=== PATIENT | female | born 1955 | race Caucasian/White ===

== ENCOUNTER 2017-03-16 13:54 | Observation (INO) ==
[2017-03-16] MEDS ORDERED: Ketorolac 15 MG/ML VIAL IVP PRN (15:21)
[2017-03-16] MEDS ORDERED: *HR* HYDROcodone/Acet 5/325 mg TABLET PO PRN (15:21)
[2017-03-16] MEDS ORDERED: Naloxone 0.4 MG/ML INJ IVP PRN (15:21)
[2017-03-16] MEDS ORDERED: *HR* Promethazine 25 MG/ML VIAL IVP PRN (15:21)
[2017-03-16] MEDS ORDERED: Ondansetron 4 MG/2 ML VIAL IVP PRN (15:21)
[2017-03-16] MEDS ORDERED: *HR* OxyCODONE Immed Rel 5 MG TABLET PO PRN (15:21)
[2017-03-16] MEDS ORDERED: Ipratropium/Albuterol Neb 3 ML IH PRN (15:25)
[2017-03-16] MEDS ORDERED: 0.9 % Sodium Chloride 1,000 ML IVC SCH (15:30)
[2017-03-16 16:22] LABS: Basophils # 0.1 K/mcL (0.0-0.2); Basophils % 0.5 %; Eosinophils # 0.2 K/mcL (0.0-0.6); Eosinophils % 1.9 %; Hematocrit 43.2 % (35.3-44.9); Hemoglobin 14.4 g/dL (11.5-15.4); Immature Granulocytes % 0.3 % (0-4); Lymphocytes # 2.3 K/mcL (0.6-4.6); Lymphocytes % 24.4 %; Mean Corpuscular HGB Conc 33.3 g/dL (31.6-35.5); Mean Corpuscular Hemoglobin 28.5 pg (28.0-33.3); Mean Corpuscular Volume 85.5 fL (83.0-100.0); Mean Platelet Volume 10.5 fL (9.4-12.4); Monocytes # 0.7 K/mcL (0.0-1.3); Monocytes % 7.7 %; Platelet Count 229 K/mcL (140-400); Red Blood Count 5.05 M/mcL (3.82-4.97); Red Cell Distribution Width 13.1 % (11.5-14.5); Segmented Neutrophils % 65.2 %
--- NOTE | 2017-03-16 16:38 | Urology History & Physical ---
Date of Encounter: 03/16/17 Time of Encounter: 16:36 Assessment and Plan (1) Ureteral stone with hydronephrosis Current Visit: No Status: Acute based in significant pain and inability to manage at home. as discussed in the office will proceed with a ureteroscopic stone extraction tomorrow. procedure was discussed. pt understands that it is not always possible to reach the stone. in this case, would place a stent and pt would require 2nd surgery. risk for injury to the urinary tract, perforation, stricture all discussed. History of Present Illness Chief complaint: flank pain HPI: Ms. Strauss is a 61 year old female recent ER visit for a ureteral stone. required admission bc of pain. no fever. CT scan = Left hydronephrosis with 2 obstructing proximal left ureteral stones, larger 5 mm. Past Med Surg Social Fam HX - Past Medical History Medical history: asthma, diabetes, GERD, hyperlipidemia, hypertension, kidney stones Psychiatric history: anxiety, depression - Past Surgical History Surgical History: cholecystectomy, hysterectomy, thyroidectomy, other - Social History Smoking Status: Never smoker Smokeless Tobacco Status: No Alcohol use: none Drug use: none - Family History Father Hx Family Cardiac Disorders: Yes Hx Family Endocrine Disorder: Yes Mother Hx Family Endocrine Disorder: Yes Medications and Allergies Albuterol Sulfate [Proair Hfa] 2 puff IH Q4H PRN 05/29/15 [History] Escitalopram [Lexapro] 20 mg PO HS 05/29/15 [History] Metoprolol Succinate 100 mg PO HS 05/29/15 [History] Omeprazole [PriLOSEC] 20 mg PO DAILY 05/29/15 [History] Ipratropium/Albuterol Neb [Duoneb] 3 ml IH Q6HR PRN 04/06/16 [History] Montelukast [Singulair] 10 mg PO HS 04/06/16 [History] Lansoprazole [Prevacid] 30 mg PO DAILY 01/20/17 [History] HYDROcodone/Acet 5/325 mg [[place] 5-325 mg] 1 tab PO Q4H PRN #30 tab 01/21/17 [Rx ] Ondansetron ODT [Zofran ODT] 4 mg SL Q6HR #10 tab.rapdis 01/21/17 [Rx] Ondansetron ODT [Zofran ODT] 4 mg SL Q8HR PRN #12 tab.rapdis 03/14/17 [Rx] OxyCODONE/APAP 5/325 [Percocet 5/325 MG] 1 each PO Q6HR PRN #16 tablet 03/14/17 [Rx] 3 Allergy/AdvReac Type Severity Reaction Status Date / Time No Known Allergies Allergy Verified 03/13/17 23:53 Review of Systems - Constitutional no chills, no fever(s) - EENT Nose, mouth and throat: no dizziness - Cardiovascular as per HPI, no chest pain - Respiratory no cough - Gastrointestinal abdominal pain, nausea - Genitourinary Genitourinary: flank pain - Musculoskeletal back pain - Integumentary no erythema - Neurological no confusion - Psychiatric as per HPI, no anxiety - Hematologic/Lymphatic no easy bleeding Exam Initial Vital Signs Temp Pulse Resp BP Pulse Ox 97.7 F 67 15 117/78 94 03/16/17 15:18 03/16/17 15:18 03/16/17 15:18 03/16/17 15:18 03/16/17 15:18 - General physical appearance Present: well developed, no distress, moderate pain - Eyes Present: PERRL, conjunctiva is clear - ENT Present: normal nares - Neck Present: no masses - Respiratory Present: normal respiratory effort - Abdomen Abdomen: Present: soft, suprapubic tenderness. Absent: masses - Integumentary Present: no rash - Neurologic Present: normal coordination. Absent: disoriented, confused - Additional Findings +left CVA tenderness Urology Results - Labs 03/16/17 16:08 Abnormal lab results RBC 5.05 M/mcL (3.82-4.97) H 03/16/17 16:08 All other labs normal.
[2017-03-16 16:50] LABS: BUN/Creatinine Ratio 26 (6-26); Blood Urea Nitrogen 21 mg/dL (8-23); Calcium 8.5 mg/dL (8.6-10.3); Carbon Dioxide 28 mEq/L (23-29); Chloride 104 mEq/L (98-107); Glucose 121 mg/dL (70-105); Osmolality,Calculated 294 (280-300); Potassium 3.6 mEq/L (3.5-5.1); Sodium 140 mEq/L (136-145); eGFR For African Americans > 60 (> 60); eGFR For Non-African Americans > 60 (> 60)
--- NOTE | 2017-03-16 19:27 | Anesthesia Evaluation PreOp ---
Date of Encounter: 03/16/17 Time of Encounter: 20:42 - Past History Planned Operation: Left Ureteroscopic stone extraction Cardiac History: HTN, Hyperlipidemia Pulmonary History: Asthma (seasonal), KAMARI Dx (CPAP 9, does not use) GEAR STRAIGHTENER History: Other (A/D) Other Medical History: Other (Morbid Obesity) Anesthesia History: Past Anesthesia (Thyroidectomy), Problems (PONV - Scopolomine effective in prior surgeries) : No Alcohol Use: none Drug use: none Medications and Allergies Albuterol Sulfate [Proair Hfa] 2 puff IH Q4H PRN 05/29/15 [History] Escitalopram [Lexapro] 20 mg PO HS 05/29/15 [History] Metoprolol Succinate 100 mg PO HS 05/29/15 [History] Omeprazole [PriLOSEC] 20 mg PO DAILY 05/29/15 [History] Ipratropium/Albuterol Neb [Duoneb] 3 ml IH Q6HR PRN 04/06/16 [History] Montelukast [Singulair] 10 mg PO HS 04/06/16 [History] Lansoprazole [Prevacid] 30 mg PO DAILY 01/20/17 [History] HYDROcodone/Acet 5/325 mg [[place] 5-325 mg] 1 tab PO Q4H PRN #30 tab 01/21/17 [Rx ] Ondansetron ODT [Zofran ODT] 4 mg SL Q6HR #10 tab.rapdis 01/21/17 [Rx] Ondansetron ODT [Zofran ODT] 4 mg SL Q8HR PRN #12 tab.rapdis 03/14/17 [Rx] OxyCODONE/APAP 5/325 [Percocet 5/325 MG] 1 each PO Q6HR PRN #16 tablet 03/14/17 [Rx] 3 Allergy/AdvReac Type Severity Reaction Status Date / Time No Known Allergies Allergy Verified 03/13/17 23:53 - Meds/Allergy Pre-op Review Medications Reviewed: Yes Allergies Reviewed: Yes Beta Blockers on Current Med List: Yes Anesthesia Results - Labs 03/16/17 16:08 03/16/17 16:08 - Imaging EKG: report reviewed (SINUS RHYTHM POSSIBLE INFERIOR MYOCARDIAL INFARCTION, PROBABLY OLD) Anesthesia Exam Vital Signs/O2 Sat, Most Current Temp Pulse Resp BP Pulse Ox 97.7 F 67 15 117/78 94 03/16/17 15:18 03/16/17 15:18 03/16/17 15:18 03/16/17 15:18 03/16/17 15:18 Pain Scale: 0 Pain Scale Used: Numeric (1 - 10) - HEENT Pupil (Motor): Pupils equal, EOMI Mallampati: II Teeth: Normal Oral Opening: Greater than 3 - GEAR STRAIGHTENER LOC: Oriented GEAR STRAIGHTENER Motor: Normal RUE, Normal LUE, Normal RLE, Normal LLE, Normal Face GEAR STRAIGHTENER Sensory: Normal: RUE, LUE, RLE, LLE, Face - Cardiac Rhythm: Regular Murmur: None JVD: No Carotid Bruit: No - Pulmonary Breath Sounds: bilateral Clear Respiratory Effort: Symmetrical Anesthesia Assess/Plan ASA Score: 3 Modified Rob Scale for Level of Consciousness: Cooperative, oriented, and tranquil Anesthetic Plan: General Autologous Blood: Yes Monitoring Plan: Standard Monitors Recovery Plan: PACU
[2017-03-16] MEDS ORDERED: Metoprolol XL (24 HR) Succ 50 MG TAB.ER.24H PO SCH (21:00)
--- NOTE | 2017-03-17 08:09 | Urology Progress Note ---
Date of Encounter: 03/17/17 Time of Encounter: 07:59 - Assessment and Plan (1) Ureteral stone with hydronephrosis Current Visit: No Status: Acute Assessment and plan: plan to proceed with stone extraction today. Progress Note Narrative: still having pain but not severe. has not passed stone Objective Initial Vital Signs Temp Pulse Resp BP Pulse Ox 97.7 F 67 15 117/78 94 03/16/17 15:18 03/16/17 15:18 03/16/17 15:18 03/16/17 15:18 03/16/17 15:18 - General physical appearance Present: no distress - Labs 03/16/17 16:08 03/16/17 16:08 Diabetes panel 03/16/17 Range/Units 16:08 Sodium 140 (136-145) mEq/L Potassium 3.6 (3.5-5.1) mEq/L Chloride 104 (98-107) mEq/L Carbon Dioxide 28 (23-29) mEq/L BUN 21 (8-23) mg/dL Creatinine 0.82 (0.60-1.20) mg/dL Glucose 121 H (70-105) mg/dL Calcium 8.5 L (8.6-10.3) mg/dL Calcium panel 03/16/17 Range/Units 16:08 Calcium 8.5 L (8.6-10.3) mg/dL Pituitary panel 03/16/17 Range/Units 16:08 Sodium 140 (136-145) mEq/L Potassium 3.6 (3.5-5.1) mEq/L Chloride 104 (98-107) mEq/L Carbon Dioxide 28 (23-29) mEq/L BUN 21 (8-23) mg/dL Creatinine 0.82 (0.60-1.20) mg/dL Glucose 121 H (70-105) mg/dL Calcium 8.5 L (8.6-10.3) mg/dL Adrenal panel 03/16/17 Range/Units 16:08 Sodium 140 (136-145) mEq/L Potassium 3.6 (3.5-5.1) mEq/L Chloride 104 (98-107) mEq/L Carbon Dioxide 28 (23-29) mEq/L BUN 21 (8-23) mg/dL Creatinine 0.82 (0.60-1.20) mg/dL Glucose 121 H (70-105) mg/dL Calcium 8.5 L (8.6-10.3) mg/dL Consult Discharge Plan - Plan Referrals: Osman Sheets DO [Primary Care Provider] - Javier Ernst MD [Partnered Physician] -
[2017-03-17] MEDS ORDERED: cefTRIAXone 1,000 MG in Water for inj. (sterile) 20 ML 10 ML IVP SCH (09:00)
[2017-03-17] MEDS ORDERED: *HR* FentaNYL (PF) 100 MCG/2 ML VIAL ONE (12:09)
[2017-03-17] MEDS ORDERED: Dexamethasone 4 MG/ML VIAL ONE (12:09)
[2017-03-17] MEDS ORDERED: Lidocaine -MPF 2% 2 ML VIAL ONE ×2 (12:09)
[2017-03-17] MEDS ORDERED: Ondansetron 4 MG/2 ML VIAL ONE (12:09)
[2017-03-17] MEDS ORDERED: *HR* Propofol 200 MG/20 ML VIAL IVP ONE (12:09)
[2017-03-17] MEDS ORDERED: *HR* Midazolam HCl 2 MG/2 ML VIAL ONE (12:14)
[2017-03-17] MEDS ORDERED: Scopolamine Patch 1.5 MG PATCH.TD72 ONE (12:38)
--- NOTE | 2017-03-17 12:40 | Operative Note ---
Date of procedure: 03/17/17 Pre-op diagnosis: left ureteral stone. Post-op diagnosis: same Procedure: left ureteroscopic stone extraction with holmium laser left retrograde pyelogram left JJ stent. Anesthesia: GETA Surgeon: Javier Ernst Was there an wet process assistant head miller present: No Estimated blood loss (cc): 0 Specimen: stone Condition: stable Disposition: PACU Procedure in Detail: PROCEDURE IN DETAIL: Patient was taken back to the operating room, positioned supine on the operating table. Anesthesia was applied without complication. They were moved into dorsal lithotomy. Careful attention was maintained to cushion all pressure points for patient's safety. They were prepped and draped in sterile fashion. Time-out was performed with the proper patient and procedure. A 21-[place] rigid cystoscope was inserted into the bladder without difficulty. Systematic examination of bladder revealed no abnormalities. The ureteral orifice was cannulated using a 5-[place] ureteral Catheter and a retrograde pyelogram was performed using Isovue. A filling defect was identified which corresponded to the stone. At that point, a zip wire was placed through the 5-[place]an and confirmed in the renal pelvis with fluoroscopy. An 8-10 dilator was then placed over the zip wire to passively dilate the ureteral orifice. A flexible ureteroscope was carefully inserted into the bladder and guided into the ureteral oriface. At that point, the stone was encountered in the mid ureter and I felt that it required fragmentation for safe extraction. A 200 micron holmium laser fiber on a setting of 8 and 800 was used to fragment the stone into multiple pieces. The fragments were individually basketed out of the ureter with a 1.9 tipless basket. All stone in the ureter was removed. I was then able to pass the stone up to the kidney. the 7 mm renal stone was encountered in the mid ureter. it was fragmented into multiple pieces which were all basketed out without complication. A 4.8 x 26 ureteral stent was placed over the zip wire under fluoroscopy without complication. The bladder was drained along with the stone fragments. They were collected and sent for stone analysis. No string was left attached to the stent
--- NOTE | 2017-03-17 12:43 | Discharge Summary ---
Date of Encounter: 03/17/17 Time of Encounter: 12:41 - Discharge Diagnosis (1) Ureteral stone with hydronephrosis Priority: Primary Status: Resolved - Discharge Medications Prescriptions: HYDROcodone/Acet 5/325 mg [[place] 5-325 mg] 1 tab PO Q4HR PRN 7 Days #15 tablet PRN Reason: Moderate Pain Home Medications: Albuterol Sulfate [Proair Hfa] 2 puff IH Q4H PRN 05/29/15 [History] Escitalopram [Lexapro] 20 mg PO HS 05/29/15 [History] Metoprolol Succinate 100 mg PO HS 05/29/15 [History] Montelukast [Singulair] 10 mg PO HS 04/06/16 [History] HYDROcodone/Acet 5/325 mg [[place] 5-325 mg] 1 tab PO Q4HR PRN 7 Days #15 tablet 03/17/17 [Rx] Ipratropium/Albuterol Neb [Duoneb] 3 ml IH Q6HR PRN inhsol 03/17/17 [Rx] Naloxone [Narcan] 0.4 mg IVP Q2MIN PRN inj 03/17/17 [Rx] Omeprazole [PriLOSEC] 20 mg PO DAILY capsule. 03/17/17 [Rx] Pantoprazole Sodium [Protonix] 40 mg PO DAILY 03/17/17 [History] Allergies/Adverse Reactions: 3 Allergy/AdvReac Type Severity Reaction Status Date / Time No Known Allergies Allergy Verified 03/13/17 23:53 Labs on day of discharge: Labs from last 24 hours 03/17/17 03/16/17 03/16/17 05:25 16:08 16:08 WBC 9.3 RBC 5.05 H Hgb 14.4 D Hct 43.2 MCV 85.5 MCH 28.5 MCHC 33.3 RDW 13.1 Plt Count 229 MPV 10.5 Immature Gran % 0.3 Seg Neutrophils % 65.2 Lymphocytes % 24.4 Monocytes % 7.7 Eosinophils % 1.9 Basophils % 0.5 Neutrophils # 6.0 Lymphocytes # 2.3 Monocytes # 0.7 Eosinophils # 0.2 Basophils # 0.1 Sodium 140 Potassium 3.6 Chloride 104 Carbon Dioxide 28 BUN 21 Creatinine 0.82 Est GFR ( Amer) > 60 Est GFR (Non-Af Amer) > 60 BUN/Creatinine Ratio 26 Glucose 121 H POC Glucose 108 H Calculated Osmolality 294 Calcium 8.5 L Date of admission: 03/16/17 14:17 Primary care physician: Beth Gomez Discharging clinician: Javier Ernst Anticipated date of discharge: 03/17/17 - Patient Status Disposition: Home, Self-Care Functional capacity at discharge: independent ambulation Overall status at discharge: patient is progressing back to baseline - Discharge Instructions Follow Up With: Osman Sheets DO [Primary Care Provider] - Javier Ernst MD [Partnered Physician] - (my office will call to schedule office cysto and stent removal. ) Additional Instructions: expect stent discomfort including urgency, frequency, burning, blood in the urine, flank pain during urination my office will call to schedule cysto stent removal call if symptoms severe or fever >101 OK to OTC AZO for dysruria (AZO is less expensive than pyridium) - Diet and Activity Activity: other Diet: advance to your usual diet - Hospital Course Hospital course: Ms. Strauss is a 61 year old female s/p surgical management of ureteral stones. plan to discharge patient after and when pt is stable with appropriate pain control Time spent discussing smoking cessation with patient: 3 to 10 minutes - Time Spent with Patient Total time spent providing and/or coordinating discharge services: Exam Initial Vital Signs Temp Pulse Resp BP Pulse Ox 97.7 F 67 15 117/78 94 03/16/17 15:18 03/16/17 15:18 03/16/17 15:18 03/16/17 15:18 03/16/17 15:18 - General physical appearance Present: well developed, no distress
[2017-03-17] MEDS ORDERED: *HR* Promethazine 25 MG/ML VIAL IVP PRN ×2 (13:04→14:25)
[2017-03-17] MEDS ORDERED: *HR* OxyCODONE/APAP 5/325 TABLET PO PRN (13:04)
[2017-03-17] MEDS ORDERED: *HR* FentaNYL (PF) 100 MCG/2 ML VIAL IVP PRN (13:04)
[2017-03-17] MEDS ORDERED: EPHEDrine 50 MG/ML VIAL ONE (13:20)
[2017-03-17] MEDS ORDERED: Isovue-300 50 ML VIAL IVP ONE (13:55)
--- NOTE | 2017-03-17 14:09 | Anesthesia Evaluation Post Op ---
Date of Encounter: 03/17/17 Time of Encounter: 14:08 - Vital Signs Vital Signs: Vital Signs/O2 Sat, Most Current Temp Pulse Resp BP Pulse Ox 97.3 F L 69 16 129/76 96 03/17/17 13:39 03/17/17 13:59 03/17/17 13:59 03/17/17 13:59 03/17/17 13:59 - Lungs Lungs: Clear Ascult./Percussion - Airway Airway: Non-obstructed - Cardiovascular Regular Rate - Mental Status Mental Status: Alert & Oriented, Answers Appropriately - Pain Pain Scale: 0 Pain Scale used: Numeric (1 - 10) - Nausea Vomiting Nausea Vomiting: Not Present - Hydration Hydration: Ice chips, Has not voided - Discharge PostOp Status: Transfer Patient to floor
[2017-03-17] MEDS ORDERED: Ketorolac 15 MG/ML VIAL IVP PRN (14:25)
[2017-03-17] MEDS ORDERED: Naloxone 0.4 MG/ML INJ IVP PRN (14:25)
[2017-03-17] MEDS ORDERED: *HR* HYDROcodone/Acet 5/325 mg TABLET PO PRN (14:25)
[2017-03-17] MEDS ORDERED: Ipratropium/Albuterol Neb 3 ML IH PRN (14:25)
[2017-03-17] MEDS ORDERED: *HR* OxyCODONE Immed Rel 5 MG TABLET PO PRN (14:25)
[2017-03-17] MEDS ORDERED: Ondansetron 4 MG/2 ML VIAL IVP PRN (14:25)
[2017-03-17 16:46] VITALS: BP 136/74
[2017-03-17] MEDS ORDERED: Metoprolol XL (24 HR) Succ 50 MG TAB.ER.24H PO SCH (21:00)
[2017-03-18] MEDS ORDERED: cefTRIAXone 1,000 MG in Water for inj. (sterile) 20 ML 10 ML IVP SCH (09:00)
== END 2017-03-17 18:15 | disposition home or self-care (01) ==
LOC: 3ANU
PROVIDERS: ADMIT Urology; ATTEND Urology